=== PATIENT | female | born 1950 | race Caucasian/White ===

== ENCOUNTER → 2016-06-28 | Outpatient (CLI) | payer BC ==
[~2016-06-28] MED LIST: ACT35 PO; CLTP PO; CRANPOW PO; MULT-506 PO; OMEG10007 PO; VITAMIN D3 PO
--- NOTE | 2016-06-29 12:36 | MAMMOGRAPHY REPORT ---
BILATERAL DIGITAL SCREENING MAMMOGRAM TOMOSYNTHESIS WITH CAD: 06/28/2016 CLINICAL HISTORY: Routine screening examination. TECHNIQUE: Breast tomosynthesis in addition to standard 2D mammography was performed. Current study was also evaluated with a Computer Aided Detection (CAD) system. COMPARISON: Comparison is made to exams dated: 06/23/2015 mammogram, 06/20/2014 mammogram, 04/26/2013 mammogram, and 04/19/2012 mammogram - [facility]. BREAST COMPOSITION: There are scattered areas of fibroglandular density in both breasts. FINDINGS: There is architectural distortion in the superior posterior left breast, best seen on the MLO tomosynthesis images (slice 29), thought to project laterally based on the CC view and tomosynt hesis images. Additional targeted ultrasound and possible additional mammographic views is recommen ded for further characterization. There are stable circumscribed oval masses in the 6:00 posterior right breast. Scattered benign-ashley earing calcifications in the breasts. No other suspicious mass, architectural distortion or cluster of microcalcifications is seen. IMPRESSION: ACR BI-RADS CATEGORY 0: INCOMPLETE EVALUATION: NEED ADDITIONAL IMAGING EVALUATION The architectural distortion in the superior left breast needs additional evaluation. The patient will be called to schedule an appointment. Approximately 10% of breast cancers are not detected with mammography. A negative mammographic repor t should not delay biopsy if a clinically suggestive mass is present. Rhianna Avila M.D. ay/:06/28/2016 18:47:49 Lead Sustainability Specialist: Hortencia MORA)(Dick), [facility] letter sent: Addl Imaging 0 BI-RADS Code: ACR BI-RADS Category 0: Incomplete Evaluation: Need Additional Imaging Evaluation
== END | disposition home or self-care (01) ==
LOC: C.MAMM 10:44
PROVIDERS: ATTEND Internal Medicine
DX: Z12.31 Encounter for screening mammogram for malignant neoplasm of breast (principal); N64.9 Disorder of breast, unspecified

== ENCOUNTER → 2016-07-06 | Outpatient (CLI) | payer BC, OTHER ==
--- NOTE | 2016-07-06 15:31 | MAMMOGRAPHY REPORT ---
UNILATERAL LEFT DIGITAL DIAGNOSTIC MAMMOGRAM TOMOSYNTHESIS AND TARGETED LEFT ULTRASOUND: 07/06/2016 CLINICAL HISTORY: 66 year old woman called back from screening mammography for an asymmetry with pos sible architectural distortion in the upper outer quadrant of the left breast. Family history of br east cancer = mother in her 80s. TECHNIQUE: Spot compression left CC and MLO 2-D digital and tomosynthesis images were obtained. COMPARISON: Comparison is made to exams dated: 06/28/2016 mammogram, 06/23/2015 mammogram, 06/20/2014 mammogram, 04/26/2013 mammogram, 04/18/2011 mammogram, and 04/19/2012 mammogram - [facility]. BREAST COMPOSITION: There are scattered areas of fibroglandular density in the left breast. FINDINGS: The supplemental spot compression views including tomosynthesis images of the left upper o uter quadrant demonstrate effacement of the question of architectural distortion as described on the 06/28/2016 screening mammogram report. There is no definite persistent mass, focal area of archite ctural distortion or suspicious calcifications. Further evaluation with ultrasound was performed. Real-time high-resolution sonographic evaluation was performed throughout the left breast including the retroareolar breast. In the 12:00 axis, 1 cm from the nipple, there is an oval parallel circums cribed hypoechoic solid benign-appearing mass measuring 4.1 x 1.6 x 3.9 mm. This is incidentally id entified. There is no other discrete solid or cystic mass or a correlate to the effacing architectu ral distortion. IMPRESSION: ACR-BI-RADS CATEGORY 3: PROBABLY BENIGN, TARGETED ULTRASOUND ACR-BI-RADS CATEGORY 3: IN OBABLY BENIGN Effacement of the questionable architectural distortion in the left upper outer quadrant, and no alo picious sonographic abnormality identified. Incidentally seen is an oval parallel circumscribed 4 m m mass in the 12:00 left breast on ultrasound, that could represent a complicated cyst or fibroadeno ma. A short interval follow-up left mammogram including tomosynthesis images and repeat targeted ul trasound in the 12:00 left breast is recommended to ensure stability in 6 months. These results and recommendations were discussed with the patient at the time of the exam. Approximately 10% of breast cancers are not detected with mammography. A negative mammographic repor t should not delay biopsy if a clinically suggestive mass is present. Rhianna Avila M.D. ay/:07/06/2016 13:14:19 Shake Packer: Johanny Webster, [facility] letter sent: Follow Up Recommended 3 BI-RADS Code: ACR-BI-RADS Category 3: Probably Benign Ultrasound BI-RADS: ACR-BI-RADS Category 3: P robably Benign
== END | disposition home or self-care (01) ==
LOC: C.MAMM 12:19
PROVIDERS: ATTEND Internal Medicine
DX: N64.9 Disorder of breast, unspecified (principal); N63 Unspecified lump in breast

== ENCOUNTER → 2016-08-04 | Outpatient (CLI) | payer BC | END | disposition home or self-care (01) | LOC: C.MAMM 09:10 | PROVIDERS: ATTEND Internal Medicine | DX: M85.89 Other specified disorders of bone density and structure, multiple sites (principal) ==

== ENCOUNTER → 2017-01-10 | Outpatient (CLI) | payer BC ==
--- NOTE | 2017-01-10 15:13 | MAMMOGRAPHY REPORT ---
UNILATERAL LEFT DIGITAL DIAGNOSTIC MAMMOGRAM TOMOSYNTHESIS WITH CAD AND TARGETED LEFT ULTRASOUND: 12/30 CLINICAL HISTORY: 66-year-old woman presents for follow-up in the left breast. She was previously wo rked up for a possible area of architectural distortion in the upper outer posterior left breast, whi ch effaced with supplemental tomosynthesis images and no suspicious sonographic correlate was seen. TECHNIQUE: Left breast tomosynthesis in addition to standard 2D mammography was performed. Current st udy was also evaluated with a Computer Aided Detection (CAD) system. COMPARISON: Comparison is made to exams dated: 07/06/2016 ultrasound, 07/06/2016 mammogram, 06/28/2016 ma mmogram, 06/23/2015 mammogram, 06/20/2014 mammogram, and 04/26/2013 mammogram - [facility]. BREAST COMPOSITION: There are scattered areas of fibroglandular density in the left breast. FINDINGS: An irregular focal asymmetry is again seen in the upper outer posterior left breast on the 2-D mammograms. There is no definite associated architectural distortion on the corresponding tomos ynthesis images. No other obvious mass, asymmetry, focal area of architectural distortion or suspici ous calcifications are identified in the left breast. When comparing back to all available prior jacklyn mograms, there may have been asymmetry in this location, although the appearance is different due to technical factors and mild involutional changes. Targeted ultrasound was performed throughout the lateral left breast. Sonographically normal tissue is seen without a suspicious solid or cystic mass. IMPRESSION: ACR BI-RADS CATEGORY 0: INCOMPLETE EVALUATION: NEED ADDITIONAL IMAGING EVALUATION, TARG ETED ULTRASOUND ACR BI-RADS CATEGORY 0: INCOMPLETE EVALUATION: NEED ADDITIONAL IMAGING EVALUATION There is a persistent irregular focal asymmetry in the upper outer posterior left breast, with no def inite associated distortion and no suspicious sonographic correlate identified. However, this focal asymmetry remains indeterminate and definitive characterization with a contrast-enhanced breast MRI i s needed to exclude the possibility of a suspicious enhancing mass. These results and recommendations were discussed with the patient at the time of the exam. Approximately 10% of breast cancers are not detected with mammography. A negative mammographic report should not delay biopsy if a clinically suggestive mass is present. Rhianna Avila M.D. ay/:01/10/2017 10:34:48 Nurse Practical: Chayo ESTRADA(R)(M), [facility] letter sent: Addl Imaging 0 BI-RADS Code: ACR BI-RADS Category 0: Incomplete Evaluation: Need Additional Imaging Evaluation Ult rasound BI-RADS: ACR BI-RADS Category 0: Incomplete Evaluation: Need Additional Imaging Evaluation
== END | disposition home or self-care (01) ==
LOC: C.MAMM 08:42
PROVIDERS: ATTEND Internal Medicine
DX: N64.89 Other specified disorders of breast (principal)

== ENCOUNTER → 2017-01-12 | Outpatient (CLI) | payer BC ==
[2017-01-12 12:53] LABS: BLOOD UREA NITROGEN 18 mg/dl (7-18)
== END | disposition home or self-care (01) ==
LOC: C.LABBFT 10:20
PROVIDERS: ATTEND Internal Medicine
DX: Z00.00 Encounter for general adult medical examination without abnormal findings (principal); Z11.59 Encounter for screening for other viral diseases

== ENCOUNTER → 2017-01-19 | Outpatient (CLI) | payer BC ==
[~2017-01-19] MED LIST changes: +GADAVIST IV PRN
--- NOTE | 2017-01-20 07:44 | MAMMOGRAPHY REPORT ---
BREAST MRI OF BOTH BREASTS : 01/19/2017 CLINICAL HISTORY: Persistent mammographic focal asymmetry in the left upper outer quadrant seen ed riley a diagnostic workup, without a sonographic correlate evident. An MRI was recommended for further e valuation. COMPARISON: Comparison is made to exams dated: 01/10/2017 mammogram, 01/10/2017 ultrasound, 07/06/2016 u ltrasound, 07/06/2016 mammogram, 06/28/2016 mammogram, and 06/23/2015 mammogram - [facility]. Technique: The patient was placed prone in a dedicated breast imaging coil. Precontrast axial T1-lupe ghted, axial T2-weighted fat saturation, and axial T1-weighted fat saturation images were obtained. After the administration of 6 mL of Gadavist IV contrast, sequential T1-weighted fat saturation image s were obtained. Subtraction images were obtained of the dynamic contrast enhanced sequences, and 3- D reformations were performed. The Ge[employer]tt software was used for kinetic analysis. Findings: There is mild background enhancement involving bilateral breasts. In the left central breast middle depth, there is a 6 mm irregular focal area of non-mass enhancement (series 105 mm image 52, series 6 image 27). This likely does not correspond with the mammographic asymmetry as the expected location of the asymmetry is slightly more lateral and posterior based on the mammographic images. The findi ng is indeterminate and MRI guided core needle biopsy is recommended for further evaluation. The mario haleigh of both breasts demonstrate no suspicious enhancing masses or areas of abnormal enhancement. T here are multiple small foci of enhancement scattered bilaterally, which are considered benign given the multiplicity and bilaterality and likely represent normal background parenchymal enhancement. A small 3 mm T2 hyperintense mass with a thin rim of enhancement in the left 4:00 anterior breast is be nign and compatible with a cyst (series 105 mm image 57, series 4 image 34). There is no evidence of axillary adenopathy. The chest wall structures are negative. Extramammary s oft tissues are unremarkable. IMPRESSION: ACR BI-RADS CATEGORY 4: SUSPICIOUS 1. Irregular 6 mm area of non-mass enhancement in the left central breast. This likely does correspon d with the mammographic asymmetry based on location. However, the non-mass enhancement is indetermin ate and MRI guided core needle biopsy is recommended for further evaluation, with post-clip mammogram s to evaluate for possible correlation with the asymmetry. 2. Otherwise negative exam. A phone call was made to the physician's office to confirm faxed results were received. Tiffanie Hoff M.D. ah/:01/19/2017 20:40:13 Account Auditor: state tested nursing assistant, [facility] BI-RADS Code: ACR BI-RADS Category 4: Suspicious
== END | disposition home or self-care (01) ==
LOC: C.MRI 07:32
PROVIDERS: ATTEND Internal Medicine
DX: R92.8 Other abnormal and inconclusive findings on diagnostic imaging of breast (principal); N64.89 Other specified disorders of breast

== ENCOUNTER → 2017-02-08 | Outpatient (CLI) | payer BC ==
[~2017-02-08] MED LIST changes: +LIDO/EPINEPHRINE/SOD BICARB 20 ML VIAL INFIL ONE; +XYLOCAINE 1%/SOD BICARB 20 ML VIAL INFIL ONE
--- NOTE | 2017-02-08 11:51 | Discharge Instructions ---
Discharge Instructions Procedure Procedure Date: Feb 08, 2017. Reason for visit: Left Non-Mass Enhancement. Discharge Discharge Date: Feb 08, 2017. Discharge Diagnosis: status post breast biopsy Instructions Activity Recommendations: Additional Limitations (see below) Return to School/Work: no limitations Recommended Home Diet: No Limitations Provider Instructions: ACTIVITY RECOMMENDATIONS: * No lifting, pushing, pulling or exercising the affected side for three days. RETURN TO SCHOOL/WORK: * You may return to work/school after the procedure, but do not perform any strenuous activities for 24 to 48 hours. MEDICATIONS: * Tylenol (two 325 mg) every four to six hours if needed for mild pain (if not allergic to Tylenol). DIET: * Resume previous diet. SPECIAL CARE INSTRUCTIONS: * Keep biopsy site dry for 24 hours. May shower after 24 hours, but do not soak (bathe) incision. * May remove Tegaderm (plastic patch) tomorrow AFTER showering. * Leave the steri-strips on for one week. Allow the steri-strips to fall off by themselves. If not off after one week, you may remove them. You may place a Bandaid crosswise over the strips, if desired. * Apply ice 10 minutes on and 10 minutes off as needed. * Wear a bra at bedtime to sleep more comfortably for 2-3 days. * Your referring physician should have the results after approximately 5 to 7 business days. * Call for unusual bleeding, fever, drainage, etc or if you have any questions call during normal business hours or after hours call Dr Hoff, [phone]. FOLLOW UP VISIT: Follow-up with Referring Physician as scheduled. Allergies Coded Allergies: No Known Allergies (Unverified , 02/04/16) David Coyle Recommendations: Call your doctor if: * Temperature above 101 degrees * Pain not relieved by pain medicine ordered * There is increased drainage or redness from any incision * You have any unanswered questions or concerns. Your Doctors Instructions noted above were prepared by provider Tiffanie Hoff. Patient Signature Section: Patient Instructions Signature Page [place] Patient (or Guardian) Signature/Date: I have read and understand the instructions given to me by my caregivers. Caregiver/RN/Doctor Signature/Date: The above-named patient and/or guardian has received patient instructions on this date. + Original Patient Signature Page (only) stays with chart. Please make copy for patient.
--- NOTE | 2017-02-08 13:40 | MAMMOGRAPHY REPORT ---
MRI BIOPSY LEFT BREAST: 02/08/2017 CLINICAL HISTORY: Focal area of non-mass enhancement in the left central breast seen on recent breast MRI. COMPARISON: Comparison is made to exams dated: 01/10/2017 mammogram, 01/10/2017 ultrasound, 01/19/2017 breast MRI, 07/06/2016 ultrasound, 07/06/2016 mammogram, and 06/28/2016 mammogram - [facility]. Technique: Written informed consent was obtained from the patient after discussion of the procedure a s well as risks of MRI guided core needle biopsy. A preprocedural timeout was performed prior to sta rting the procedure. The patient was placed prone on a 1.5 Nicki MR scanner. The lateral aspect of the left breast was cl eansed with ChloraPrep. The left breast was positioned in a dedicated breast coil and MRI guidance g rid device. After localizing sequences were obtained, pre-and postcontrast axial sequences were performed which c onfirm the persistence of the enhancing area in the left central breast. 5.9 cc Gadavist IV contrast was administered. Using the images, targeting was performed using the Quantivo software. The skin was prepped with Betadine through the grid and after local anesthesia was achieved, an intro ducer sheath and localizing obturator were placed into the site using a lateral approach. The locati on of the obturator sheath was confirmed with additional images. Subsequently, multiple samples were obtained from the site using a Aquantia 9-gauge vacuum-assisted core biopsy device. Through the introducer sheath, a marker clip was placed. Postprocedural images demo nstrate postbiopsy changes in the expected location of the enhancing lesion. Direct pressure was hel d at the biopsy site until hemostasis was achieved. The patient tolerated the procedure without immediate complication. Mammography was obtained at the breast center after completion of the biopsy to confirm marker clip placement. Please see the separa te dictation of the exam for further details. The specimens were sent to pathology for analysis. Wo und care instructions were given to the patient. IMPRESSION: MRI BIOPSY MRI guided core needle biopsy of the focal area of non-mass enhancement in the left central breast, w ith clip placement. The patient will receive pathology results from her referring provider. Tiffanie Hoff M.D. /:02/08/2017 12:26:53 Certified Ophthalmic Surgical Assistant: in class special education teacher, [facility]
--- NOTE | 2017-02-10 14:14 | MAMMOGRAPHY REPORT ---
UNILATERAL LEFT DIGITAL DIAGNOSTIC MAMMOGRAM: 02/09/2017 CLINICAL HISTORY: Status post MRI guided biopsy of the left breast. TECHNIQUE: Postprocedural left CC and ML views were obtained. COMPARISON: Comparison is made to exams dated: 01/19/2017 breast MRI, 01/10/2017 mammogram, 02/08/2017 MRI biopsy, 07/06/2016 ultrasound, 07/06/2016 mammogram, and 06/28/2016 mammogram - [facility]. BREAST COMPOSITION: There are scattered areas of fibroglandular density in the left breast. FINDINGS: A new biopsy marker clip is seen in the left central breast status post MRI guided biopsy of focal non-mass enhancement. No significant postbiopsy hematoma is seen. The biopsy marker clip d oes not align with the original mammographic asymmetry. Given that this does not align with the mamm ographic asymmetry and given that no suspicious MRI abnormality was seen in the region of the mammogr aphic asymmetry, the asymmetry likely represents normal fibroglandular tissue. IMPRESSION: POST PROCEDURE IMAGING FOR MARKER PLACEMENT 1. New biopsy marker clip status post MRI guided biopsy of the left breast. Pathology results are pe nding. 2. The biopsied non-mass enhancement does not correspond with the original mammographic asymmetry. Given that no suspicious MRI abnormality was seen in the region of the mammographic asymmetry, the as ymmetry is likely benign and likely represents normal fibroglandular tissue. Approximately 10% of breast cancers are not detected with mammography. A negative mammographic report should not delay biopsy if a clinically suggestive mass is present. Tiffanie Hoff M.D. ah/:02/09/2017 14:57:59 Spooling Machine Operator: Johanny Webster [facility] BI-RADS Code: Post Procedure Imaging For Marker Placement
== END | disposition home or self-care (01) ==
LOC: C.MRI 09:54
PROVIDERS: ATTEND Internal Medicine
DX: N64.9 Disorder of breast, unspecified (principal); N60.12 Diffuse cystic mastopathy of left breast; N60.92 Unspecified benign mammary dysplasia of left breast

== ENCOUNTER → 2017-07-28 | Outpatient (CLI) | payer OTHER ==
[~2017-07-28] MED LIST changes: -GADAVIST IV PRN; -LIDO/EPINEPHRINE/SOD BICARB 20 ML VIAL INFIL ONE; -XYLOCAINE 1%/SOD BICARB 20 ML VIAL INFIL ONE
[2017-07-28 12:22] LABS: BASO % 0.6 %; BASO ABS # 0.03 K/uL (0-0.2); EOS ABS # 0.14 K/uL (0-0.5); HEMATOCRIT 42.2 % (37-47); IG# 0.01 K/uL (0.00-0.02); LYMPH % 31.7 %; MEAN CELL VOLUME 88.7 fL (80-100); MEAN CORPUSCULAR HEMOGLOBIN 29.4 pg (25-34); MEAN CORPUSCULAR HGB CONC 33.2 g/dl (32-36); MEAN PLATELET VOLUME 10.2 fL (7.4-10.4); MONO % 7.8 %; MONO ABS # 0.37 K/uL (0.11-0.59); NEUT % 56.7 %; NEUT ABS # 2.68 K/uL (1.4-6.5); PLATELET COUNT 216 K/uL (130-400); RED CELL DISTRIBUTION WIDTH CV 13.8 % (11.5-14.5); RED CELL DISTRIBUTION WIDTH SD 44.5 fL (36.4-46.3); WHITE BLOOD COUNT 4.73 K/uL (4.8-10.8)
[2017-07-28 12:32] LABS: ALT/SGPT 22 U/L (12-78); BLOOD UREA NITROGEN 18 mg/dl (7-18); CARBON DIOXIDE 30 mmol/L (21-32); CHOLESTEROL 224 mg/dl (0-200); CREATININE 1.02 mg/dl (0.60-1.20); GLUCOSE 85 mg/dl (70-99); POTASSIUM 4.4 mmol/L (3.5-5.1); SODIUM 140 mmol/L (136-145)
[2017-07-28 12:34] LABS: ALKALINE PHOSPHATASE 80 U/L (45-117); AST/SGOT 27 U/L (15-37); LDL CHOLESTEROL CALCULATED 138 mg/dl
== END | disposition home or self-care (01) ==
LOC: C.LABBFT 07:55
PROVIDERS: ATTEND Internal Medicine
DX: Z00.00 Encounter for general adult medical examination without abnormal findings (principal); M85.80 Other specified disorders of bone density and structure, unspecified site; L57.0 Actinic keratosis; E78.5 Hyperlipidemia, unspecified; R92.8 Other abnormal and inconclusive findings on diagnostic imaging of breast

== ENCOUNTER → 2017-08-03 | Outpatient (CLI) | payer OTHER ==
[~2017-08-03] MED LIST changes: +GADAVIST IV PRN
--- NOTE | 2017-08-04 15:37 | MAMMOGRAPHY REPORT ---
BREAST MRI OF BOTH BREASTS : 08/03/2017 CLINICAL HISTORY: The patient presents for short interval follow-up after benign MRI guided biopsy of the left breast. COMPARISON: Comparison is made to exams dated: 02/08/2017 MRI biopsy, 01/19/2017 breast MRI, 7 mammogram, 06/28/2016 mammogram, 06/23/2015 mammogram, and 06/20/2014 mammogram - [facility]. Technique: The patient was placed prone in a dedicated breast imaging coil. Precontrast axial T1-lupe ghted, axial T2-weighted fat saturation, and axial T1-weighted fat saturation images were obtained. After the administration of 6 mL of Gadavist IV contrast, sequential T1-weighted fat saturation image s were obtained. Subtraction images were obtained of the dynamic contrast enhanced sequences, and 3- D reformations were performed. The SiTune software was used for kinetic analysis. Findings: There is mild background parenchymal enhancement involving bilateral breasts. Susceptibility artifac t is seen within the left breast related to prior MRI guided biopsy. The previously biopsied 5 mm ar ea of non-mass enhancement within the left central breast is not significantly changed compared to e December 2016 exam, with clip artifact seen at the site of the non-mass enhancement (series 81039 image 60). Given that the finding is stable and given the benign pathology on biopsy, it is consider ed benign. The remainder of both breasts demonstrate no suspicious masses or areas of abnormal non-m ass enhancement. A few scattered small foci of enhancement are seen scattered within bilateral breas ts, not significantly changed compared to the prior MRI exam. There is no evidence of axillary adenopathy. The chest wall structures are negative. There is a nod ular 8 mm opacity seen within the right lower lung anteriorly with a few other patchy opacities seen in the adjacent lung parenchyma, with total extent of the finding measuring approximately 2.2 cm (ser ies 501 image 80). Recommend chest CT for further evaluation. IMPRESSION: ACR BI-RADS CATEGORY 2: BENIGN 1. No MRI evidence of malignancy in either breast. The previously biopsied non-mass enhancement in the left central breast is stable compared to the December 2016 exam, and is considered benign given the stability and benign pathology on biopsy. Return to annual mammogram screening schedule is nawaf mmended; note that the patient is due for bilateral mammograms at this time. 2. Nodular 8 mm opacity and other adjacent patchy opacities in the right lower lung anteriorly. Whi le these could represent atelectasis, the findings are not well evaluated on this exam. Recommend ch est CT for further evaluation to exclude a possible pulmonary nodule. Tiffanie Hoff M.D. ah/:08/03/2017 16:16:13 Sales Commissions Analyst: immigration services officer, [facility] letter sent: Normal 1/2 BI-RADS Code: ACR BI-RADS Category 2: Benign
== END | disposition home or self-care (01) ==
LOC: C.MRI 08:57
PROVIDERS: ATTEND Internal Medicine
DX: R92.8 Other abnormal and inconclusive findings on diagnostic imaging of breast (principal)

== ENCOUNTER → 2017-08-10 | Outpatient (CLI) | payer OTHER ==
[~2017-08-10] MED LIST changes: -GADAVIST IV PRN
--- NOTE | 2017-08-10 16:15 | DIAGNOSTIC IMAGING REPORT ---
CT OF THE CHEST WITHOUT IV CONTRAST CLINICAL HISTORY: Abnormal finding on imaging. Possible lung nodule on recent breast MRI. COMPARISON STUDY: Chest radiograph June 22, 2010 and breast MRI August 03, 2017. CT DOSE: 200.99 mGy.cm TECHNIQUE: Axial images of the chest were obtained without IV contrast. Images were reviewed in the axial, sagittal, and coronal planes. IV contrast was not administered for this examination. A dose lowering technique was utilized adhering to the principles of ALARA. FINDINGS: No enlarged axillary, mediastinal or hilar lymph nodes are present. The size of the heart is normal. There is no pericardial effusion. Note is made of a tree-in-bud nodules within the right middle lobe with the largest nodule measuring approximately 1 cm. This corresponds to the abnormality on MRI of August 03, 2017. There is an indeterminate 8 mm lingular nodule shown image 193 of 321. A few calcified pulmonary nodules are present. There is a noncalcified 4 mm left lower lobe nodule shown on image 237. Note is made of a 3 mm noncalcified left lower lobe nodule shown image 273. Central airways are patent. Bony thorax is unremarkable. Upper abdomen is unremarkable. IMPRESSION: 1. Tree-in-bud nodules within the right middle lobe which correspond to the finding shown on MRI of August 03, 2017. This is likely benign and favors a mild inflammatory/infectious process. A follow-up chest CT in 6 months to ensure stability/resolution is recommended. 2. Several additional pulmonary nodules, including an indeterminate 8 mm lingular nodule. This nodule should be assessed on subsequent chest CT in 6 months to ensure stability. Electronically signed by: Jelani Beltre M.D. 08/10/2017 4:13 PM Dictated Date/Time: 08/10/2017 4:02 PM
== END | disposition home or self-care (01) ==
LOC: C.CTS 15:45
PROVIDERS: ATTEND Internal Medicine
DX: R91.8 Other nonspecific abnormal finding of lung field (principal)